=== PATIENT | female | born 2000 ===

== ENCOUNTER 2025-10-28 06:26 | Day surgery (SDC) | payer OTHER ==
[2025-10-20 09:07] LABS: URINE APPEARANCE Clear; URINE BILIRRUBIN Negative (NEGATIVE); URINE BLOOD Negative; URINE COLOR Yellow; URINE GLUCOSE Negative (NEGATIVE); URINE KETONE Negative (NEGATIVE); URINE LEUKOCYTE Negative; URINE NITRATE Negative; URINE PROTEIN Negative (NEGATIVE); URINE UROBILINOGEN 0.2 E.U./dl
[2025-10-20 09:08] LABS: URINE BACTERIA 161.2 uL (0.0-1933); URINE EPITHELIAL CELLS 8.8 uL (0.0-38.8); URINE RBC 18.6 uL (0.0-20.8); URINE WBC 4.5 uL (0.0-23.2)
[2025-10-20 09:09] LABS: BASO % 0.4 % (0.1-1.2); EOS # 0.03 (0.04-0.54); EOS % 0.5 % (0.7-7.0); LYMPH # 1.92 (1.18-3.74); LYMPH % 35.1 % (19.3-53.1); MEAN PLATELET VOLUME 11.60 fl (9.4-12.4); MONO # 0.34 (0.24-0.82); MONO % 6.2 % (4.7-12.5); NEUT # 3.15 (1.56-6.13); NEUT % 57.6 % (34.0-71.1); RED CELL DISTRIBUTION WIDTH 13.1 % (11.6-14.4)
[2025-10-20 09:25] LABS: URINE CAST 0.14 uL (0.0-1.40)
[2025-10-20 09:36] LABS: INR 1.01
[2025-10-20 09:54] LABS: ALT/SGPT 17.0 U/L (12-78); AST/SGOT 9.0 U/L (15-37); BILIRUBIN TOTAL 0.45 mg/dL (0.3-1.2); BUN CREA RATIO 12.0 (7.0-25.0); CREATININE SERUM 0.67 mg/dL (0.55-1.02); GFR 107.24; GLOBULINA 4.0 G/DL (2.4-3.5); GLUCOSE FASTING 89.0 mg/dL (65-100); OSMOLALITY SERUM 281.0 MOSM/KG (275-295)
[2025-10-28] MEDS ORDERED: CEFAZOLIN SODIUM 1,000 MG VIAL ONE (08:52)
[2025-10-28] MEDS ORDERED: BUPIVACAINE HCL/MPF 0.5% 30ML VIAL ONE (09:14)
[2025-10-28] MEDS ORDERED: LIDOCAINE HCL 1%/EPINEPHRINE 20ML VIAL IJ ONE (09:15)
== END 2025-10-28 11:10 | disposition home or self-care (01) ==
LOC: CIR.AMB 06:26
PROVIDERS: ATTEND Surgery
DX: D17.24 Benign lipomatous neoplasm of skin and subcutaneous tissue of left leg (principal)